=== PATIENT | female | born 1990 | race African-American/Black ===

== ENCOUNTER 2021-06-06 04:35 | Emergency (ER) | payer SELFPAY ==
[~2021-06-06] VITALS: Ht 162.6 cm; Wt 81.6 kg
[2021-06-06] MEDS ORDERED: KETOROLAC TROMETHAMINE 30 MG/ML VIAL IM STA (05:24)
[2021-06-06] MEDS ORDERED: IBUPROFEN600 MG PO (05:28)
[2021-06-06] MEDS ORDERED: ALPRAZOLAM 1 MG TAB PO ONE (06:15)
[2021-06-06] MEDS ORDERED: TRAMADOL HCL 50 MG TAB PO ONE (06:15)
[2021-06-06] MEDS ORDERED: LIDOCAINE HCL 1% LOCAL INJ 20 ML VIAL INJ ONE (09:15)
== END 2021-06-06 09:21 | disposition home or self-care (01) ==
LOC: ER 05:35
DX: K08.89 Other specified disorders of teeth and supporting structures (principal); S02.5XXD Fracture of tooth (traumatic), subsequent encounter for fracture with routine healing; F41.9 Anxiety disorder, unspecified
CPT/HCPCS: 99282; J1885